=== PATIENT | male | born 1960 | race Two or more races ===

== ENCOUNTER 2024-04-27 12:27 | Emergency (ER) | payer MEDICAID, SELFPAY ==
--- NOTE | ~2024-04-27 | US_ITS ---
EXAMINATION: US TRIPLEX LOWER EXTREMITY, LEFT CLINICAL INFORMATION: Re-eval of DVT COMPARISON: None available. TECHNIQUE: Color-flow triplex imaging with spectral analysis and compression Doppler were performed on the left lower extremity. FINDINGS: Respiratory variation, normal compression and augmented flow are noted throughout the left lower extremity. The visualized common femoral vein, superficial femoral vein, profunda femoral vein, popliteal vein and midcalf peroneal and posterior tibial venous segments show no evidence of deep venous thrombosis. There is no Hernández's cyst. US/US venous duplex LE LT IMPRESSION: No evidence of deep venous thrombosis involving the left lower extremity. Electronically signed by: Hardik Doshi MD 04/27/2024 01:40 PM EDT
--- NOTE | ~2024-04-27 | CT_ITS ---
EXAMINATION: CT HEAD WITHOUT CONTRAST CLINICAL INFORMATION: Dizziness. COMPARISON: None. TECHNIQUE: Contiguous axial imaging was performed from the skullbase to vertex without intravenous administration of contrast. This CT examination was performed using dose optimization techniques as appropriate, variously including the following: *Automated exposure control *Adjustment of mA and/or kV according to patient size (this includes techniques or standardized protocols for targeted exams where dose is matched to indication/reason for exam; i.e. extremities or head) *Use of iterative reconstruction technique DLP: 786 mGy-cm. FINDINGS: There is no evidence of acute intracranial hemorrhage or territorial infarction. No abnormal mass effect or midline shift is seen. Sheth to white matter differentiation is well preserved. No extra-axial fluid collections are identified. The ventricles are normal in size. There is no abnormal attenuation within the brain parenchyma. The osseous structures and soft tissues are normal. There is mild mucosal thickening in the right maxillary antrum. Significant bilateral mastoid effusions noted with aeration of the middle ear cavities. The nasopharyngeal soft tissues appear normal. Fatty changes partially visible in the right parotid gland. CT/CT head/brain wo IV con IMPRESSION: No acute intracranial pathology. Electronically signed by: Mathew Gabriel MD 04/27/2024 02:04 PM EDT
[2024-04-27 12:32] VITALS: BP 169/62; PULSE 76; RESP 18; TEMP 36.8; O2SAT 97; BMI 26.2
--- NOTE | 2024-04-27 12:34 | ED_ITS ---
HPI - General Adult General Chief complaint: General Medical Stated complaint: Multiple Complaints Time Seen by Provider: 04/27/24 19:40 Source: family Limitations: language barrier History of Present Illness ED Provider: Candelaria Duran PA-C HPI narrative: 64 year old assigned male at with history of hypertension, hyperlipidemia, DVT, gout and coronary artery disease presenting to the emergency department with ongoing dizziness and re-eval of blood clot. Patient states he recently traveled to [place] and there was diagnosed with a left lower leg DVT. Patient states that they continued him on his plavix and told him to follow up with a doctor in 7 days to repeat an US of the left lower leg to make sure it isn't getting worse. Patient states he often wakes up dizzy and ?sees spots in his field of vision?. The symptoms last for seconds and resolve. Patient denies headache, visual changes, nausea, vomiting. Patient denies that he is ?seeing a her in close within his field of view?. Patient denies palpitations, chest pain, shortness of breath or near syncopal symptoms. Patient is new to the area, he is yet to establish primary care. Related Data Previous Rx's ?Medication ?Instructions ?Recorded clopidogrel 75 mg tablet 75 mg PO DAILY #30 tabs 04/27/24 colchicine 0.6 mg capsule 0.6 mg PO BID #60 caps 04/27/24 Allergies Allergy/AdvReac Type Severity Reaction Status Date / Time No Known Allergies Allergy Verified 04/27/24 12:36 Review of Systems 2 Review of Systems: Yes all other systems are reviewed and are negative Eyes: Eyes: Denies blind spots, Denies blurry vision, Denies change in vision, Reports floaters, Denies loss of vision and Reports spots in vision Cardiovascular: Cardiovascular: Denies chest pain and Denies dyspnea Respiratory: Respiratory: Denies hemoptysis and Denies dyspnea Neurologic: Denies loss of vision [facility] Past Medical History Attestation statement: The following information was validated with the patient. Social History Social History Advance Directives: No Advance Directives Information Provided: No Do you have a plan to hurt others: No Plan Physical Exam ED Vital Signs: Vital Signs - 24 hr 04/27/24 12:32 04/27/24 19:59 04/27/24 20:53 Temperature 98.3 F 96.6 F L Pulse Rate 76 58 62 Respiratory Rate 18 17 Blood Pressure 169/62 H 141/58 H 148/52 H Pulse Oximetry 97 96 Oxygen Delivery Method Room Air Room Air 04/27/24 21:01 04/27/24 21:01 04/27/24 21:02 Temperature Pulse Rate 65 58 62 Respiratory Rate Blood Pressure 150/59 H 126/59 L 148/52 H Pulse Oximetry Oxygen Delivery Method BMI result Body Mass Index 26.2 Const Other: Awake, well in appearance sitting up in bed eating his meal Orientation/consciousness: patient oriented x3 Eyes Other: Extraocular eye movements intact, pupils are equal and reactive, pterygium noted right eye, no nystagmus Resp Other: Nonlabored respiration Cardio Other: Normal peripheral perfusion, no pedal edema Skin Other: Warm dry no rash Neuro Other: Ambulates with normal steady gait, Romberg negative General: patient oriented x3, no focal motor deficits and CN's II-XI intact bilaterally Psych Other: Calm cooperative Course Course Course Narrative: RME performed by Janet Kang PA-C. Patient is a 64 year old assigned male at presenting to the emergency department with new onset dizziness and re- eval of blood clot. Patient states he recently traveled to [place] and there was diagnosed with a left lower leg DVT. Patient states that they continued him on his plavix and told him to follow up with a doctor in 7 days to repeat an US of the left lower leg to make sure it isn't getting worse. Patient states that also over the last 3 days he has been having increased dizziness / floaters in his vision. Detailed physical exam and review of systems are deferred to the pinmaker. EKG, labs, imaging, and swabs ordered. Patient placed back in the waiting room pending room availability and results. Medical Decision Making Medical Decision Making MDM Narrative: 64 year old assigned male at with history of hypertension, hyperlipidemia, DVT, gout and coronary artery disease presenting to the emergency department with ongoing dizziness and re-eval of blood clot. Patient states he recently traveled to [place] and there was diagnosed with a left lower leg DVT. Patient states that they continued him on his plavix and told him to follow up with a doctor in 7 days to repeat an US of the left lower leg to make sure it isn't getting worse. Patient states he often wakes up dizzy and ?sees spots in his field of vision?. The symptoms last for seconds and resolve. Patient denies headache, visual changes, nausea, vomiting. Patient denies that he is ?seeing a her in close within his field of view?. Patient denies palpitations, chest pain, shortness of breath or near syncopal symptoms. Patient is new to the area, he is yet to establish primary care. Patient has also requesting that some of his medications be filled, he needs his clopidogrel and colchicine. Problem: Vascular disease, gout History: Per patient I have considered the following differential diagnoses: Retinal detachment, age-related floaters, vitreal detachment, uveitis, orthostatic hypotension, CVA, anemia, new arrhythmia, vertigo Plan: The patient is assessment began in [facility]. Screening labs including DVT study and a CT of the brain were obtained. The patient does not have evidence of a DVT, from what he is describing, he has dependent edema, he has no peripheral edema at this time. In regard to the dizziness, I checked his orthostatic vitals, normal variant noted. He only is dizzy when he wakes in the morning, this is very nonspecific. CVA was also considered, however he has no neurologic deficits, the dizziness is transient, , he is not ataxic. In regard to his ocular complaints, I have considered retinal detachment, vitreal detachment. However he is not having vision loss, I performed bedside ocular ultrasound, no abnormalities noted. Thought about uveitis, however he does not have any underlying associated inflammatory or autoimmune diseases, and the eyes are also not painful. I am advising that he follow up with an community service technician for a thorough eye exam. Also consider vertigo, however there was no nystagmus on exam and position change does not elicit symptoms. I have independently reviewed the following tests: Labs: No leukocytosis, not anemic, no electrolyte abnormality, viral panel and negative EKG: Normal sinus rhythm, rate of 63, no ischemic changes no ectopy, QTC 395 CT brain: ECHNIQUE: Contiguous axial imaging was performed from the skullbase to vertex without intravenous administration of contrast. This CT examination was performed using dose optimization techniques as appropriate, variously including the following: *Automated exposure control *Adjustment of mA and/or kV according to patient size (this includes techniques or standardized protocols for targeted exams where dose is matched to indication/reason for exam; i.e. extremities or head) *Use of iterative reconstruction technique DLP: 786 mGy-cm. FINDINGS: There is no evidence of acute intracranial hemorrhage or territorial infarction. No abnormal mass effect or midline shift is seen. Sheth to white matter differentiation is well preserved. No extra-axial fluid collections are identified. The ventricles are normal in size. There is no abnormal attenuation within the brain parenchyma. The osseous structures and soft tissues are normal. There is mild mucosal thickening in the right maxillary antrum. Significant bilateral mastoid effusions noted with aeration of the middle ear cavities. The nasopharyngeal soft tissues appear normal. Fatty changes partially visible in the right parotid gland. CT/CT head/brain wo IV con IMPRESSION: No acute intracranial pathology. Electronically signed by: Mathew Gabriel MD 04/27/2024 02:04 PM EDT RP Doppler study left lower extremity:OMPARISON: None available. TECHNIQUE: Color-flow triplex imaging with spectral analysis and compression Doppler were performed on the left lower extremity. FINDINGS: Respiratory variation, normal compression and augmented flow are noted throughout the left lower extremity. The visualized common femoral vein, superficial femoral vein, profunda femoral vein, popliteal vein and midcalf peroneal and posterior tibial venous segments show no evidence of deep venous thrombosis. There is no Hernández's cyst. US/US venous duplex LE LT IMPRESSION: No evidence of deep venous thrombosis involving the left lower extremity. Electronically signed by: Hardik Doshi MD 04/27/2024 01:40 PM EDT Lab Data 04/27/24 13:23 04/27/24 13:23 Labs: Lab Results 04/27/24 Range/Units 13:23 WBC 9.7 (4.8-10.8) X10*3/uL RBC 4.90 (4.60-5.80) X10*6/uL Hgb 14.7 (14.0-18.0) g/dl Hct 43.1 (42.0-52.0) % MCV 88.0 (80.0-98.0) fL MCH 30.0 (27.0-33.0) pg MCHC 34.1 (31.0-36.0) g/dl RDW 13.6 (11.0-16.0) % Plt Count 340 (160-400) X10*3/uL MPV 9.6 (9.4-12.4) fL Immature Gran % (Auto) 0.4 (0.0-0.4) % Neut % (Auto) 65.4 (45-73) % Lymph % (Auto) 22.5 (20-40) % Greene % (Auto) 8.8 (2-11) % Eos % (Auto) 2.2 (0-4) % Baso % (Auto) 0.7 (0-2) % Lymph # (Auto) 2.2 (1.2-4.9) X10*3/uL Greene # (Auto) 0.9 (0.1-1.2) X10*3/uL Eos # (Auto) 0.2 (0.0-0.4) X10*3/uL Baso # (Auto) 0.1 (0.0-0.2) X10*3/uL Abs Immat Gran (auto) 0.04 H (0.00-0.03) X10*3/uL Absolute Neuts (auto) 6.3 (2.0-8.3) x10*3/uL Absolute Nucleated RBC 0.000 (0.0-0.012) X10*3/uL Nucleated RBC % (auto) 0.0 (0.0-0.2) /100WBC PT 14.7 H (11.1-13.3) SEC INR 1.2 H (0.9-1.1) APTT 30.9 (26.0-36.8) SEC Sodium 139 (135-145) mmol/L Potassium 4.7 (3.3-5.1) mmol/L Chloride 106 (96-108) mmol/L Carbon Dioxide 26 (22-29) mmol/L Anion Gap 12 (12-20) BUN 12 (9-16) mg/dL Creatinine 0.79 (0.5-1.4) mg/dL Estim Creat Clear Calc 93.7 Estimated GFR > 60 Random Glucose 99 (60-115) mg/dL Calcium 9.8 (8.4-10.2) mg/dL Magnesium 2.2 (1.6-2.6) mg/dL Total Bilirubin 0.6 (0.0-1.0) mg/dL AST 18 (5-37) U/L ALT 21 (0-40) U/L Alkaline Phosphatase 105 (39-117) U/L Troponin I High Sens < 2.7 (<3.5-35.0) ng/L Total Protein 7.4 (6.5-8.0) g/dL Albumin 4.3 (3.5-5.0) g/dL Influenza Type A (PCR) NEGATIVE (Negative) Influenza Type B (PCR) NEGATIVE (Negative) RSV RNA Qual (PCR) NEGATIVE (Negative) SARS-CoV-2 RNA (RT-PCR) NEGATIVE (Negative) Discharge Plan Discharge Clinical Impression: Dizziness Patient Disposition: Home, Self-Care Instructions: Dizziness (ED) Additional Instructions: All of your screening labs were normal. There were no concerning changes on your EKG. The CT scan of your brain was negative as well. You were also screened for a clot in the left lower extremity, that study was negative. You need to establish primary care. Take your prescribed medications as previously directed. Prescriptions: New clopidogrel 75 mg tablet 75 mg PO DAILY Qty: 30 0RF colchicine 0.6 mg capsule 0.6 mg PO BID Qty: 60 0RF Print Language: Chadian
--- NOTE | 2024-04-27 12:37 | ECG_ITS ---
Test Reason : cp Blood Pressure : / mmHG Vent. Rate : 063 BPM Atrial Rate : 063 BPM P-R Int : 156 ms QRS Dur : 078 ms QT Int : 386 ms P-R-T Axes : 052 006 050 degrees QTc Int : 395 ms Normal sinus rhythm Possible Left atrial enlargement Borderline ECG No previous ECGs available Referred By: Janet Kang Electronically Signed By:MARKUS BUSBY
[2024-04-27 13:28] LABS: MANUAL DIFF FLAG NO
[2024-04-27 13:34] LABS: Basophils Absolute Auto 0.1 X10*3/uL (0.0-0.2); Basophils Percent Auto 0.7 % (0-2); Eosinophils Absolute Auto 0.2 X10*3/uL (0.0-0.4); Eosinophils Percent Auto 2.2 % (0-4); Hematocrit 43.1 % (42.0-52.0); Hemoglobin 14.7 g/dl (14.0-18.0); Imm Gran Abs Auto 0.04 X10*3/uL (0.00-0.03); Imm Gran Pct Auto 0.4 % (0.0-0.4); Lymphocytes Absolute Auto 2.2 X10*3/uL (1.2-4.9); Lymphocytes Percent Auto 22.5 % (20-40); Mean Corpuscular HGB Conc 34.1 g/dl (31.0-36.0); Mean Platelet Volume 9.6 fL (9.4-12.4); Monocytes Absolute Auto 0.9 X10*3/uL (0.1-1.2); Monocytes Percent Auto 8.8 % (2-11); Neutrophils Absolute Auto 6.3 x10*3/uL (2.0-8.3); Neutrophils Percent Auto 65.4 % (45-73); Platelet Count 340 X10*3/uL (160-400); Red Cell Distribution Width 13.6 % (11.0-16.0); White Blood Count 9.7 X10*3/uL (4.8-10.8)
[2024-04-27 13:42] LABS: INTERNATIONAL NORM RATIO 1.2 (0.9-1.1); Prothrombin Time 14.7 SEC (11.1-13.3)
[2024-04-27 13:44] LABS: Partial Thromboplastin Time 30.9 SEC (26.0-36.8)
[2024-04-27 14:05] LABS: Alanine Aminotransferase 21 U/L (0-40); Albumin Level 4.3 g/dL (3.5-5.0); Alkaline Phosphatase 105 U/L (39-117); Anion Gap 12 (12-20); Aspartate Amino Transferase 18 U/L (5-37); Bilirubin Total 0.6 mg/dL (0.0-1.0); Blood Urea Nitrogen 12 mg/dL (9-16); Calcium 9.8 mg/dL (8.4-10.2); Carbon Dioxide 26 mmol/L (22-29); Chloride 106 mmol/L (96-108); Creatinine Clr Calc Pharmacy 93.7; Estimated Glomerular Filt Rate > 60; Glucose Random 99 mg/dL (60-115); Magnesium 2.2 mg/dL (1.6-2.6); Potassium 4.7 mmol/L (3.3-5.1); Sodium 139 mmol/L (135-145); Total Protein 7.4 g/dL (6.5-8.0)
[2024-04-27 14:14] LABS: Troponin-I High Sensitivity < 2.7 ng/L (<3.5-35.0)
[2024-04-27 14:20] LABS: Influenza A PCR NEGATIVE (Negative); Influenza B PCR NEGATIVE (Negative); Resp Syncy Virus RNA Qual PCR NEGATIVE (Negative); SARS COV2 PCR INHOUSE NEGATIVE (Negative)
--- NOTE | 2024-04-27 19:36 | PC.NURSE ---
Pt brought to 17h from waiting room, assumed care of pt at this time. Results received, awaiting MD primary evlito, aware of plan of care.
[2024-04-27 19:59] VITALS: BP 141/58; PULSE 58; RESP 17; TEMP 35.9; O2SAT 96
[2024-04-27 20:53] VITALS: BP 148/52; PULSE 62
[2024-04-27 21:01] VITALS: BP 126/59; BP 150/59; PULSE 58; PULSE 65
[2024-04-27 21:02] VITALS: BP 148/52; PULSE 62
[2024-04-27 21:43] VITALS: BP 148/52; PULSE 62; RESP 16; TEMP 36.4; O2SAT 98
== END 2024-04-27 21:45 | disposition home or self-care (01) ==
PROVIDERS: Physician Assistant Medical; Emergency Provider Internal Medicine
DX: R42 Dizziness and giddiness (principal); Z03.818 Encounter for observation for suspected exposure to other biological agents ruled out; I10 Essential (primary) hypertension; E78.5 Hyperlipidemia, unspecified; Z86.718 Personal history of other venous thrombosis and embolism; Z79.01 Long term (current) use of anticoagulants
CPT/HCPCS: 0241U; 70450; 80053; 83735; 84484; 85025; 85610; 85730; 93005; 93971; 99283; 99284

== ENCOUNTER 2024-12-30 11:30 | Emergency (ER) | payer SELFPAY ==
--- NOTE | ~2024-12-30 | CT_ITS ---
CLINICAL HISTORY: right flank pain, 10 10, no urinary sx --- Additional Notes or Special Instructions : please look at kidney and spine CT abdomen and pelvis without contrast Comparison: None Findings: No nephrolithiasis or hydronephrosis. No perinephric or periureteral stranding. No bladder stone. Underdistended bladder. Increased submucosal fat. No consolidation at the lung bases. Underdistended gallbladder. The other solid organs are normal. No bowel wall thickening or dilation. A normal appendix is identified. No aneurysm. Moderate calcified atherosclerotic disease. No lymphadenopathy. No ascites. No acute fracture. Multilevel degenerative change is most prominent at L2/L3 and L3/L4 with [id number] central spinal canal stenosis. Foraminal stenosis is most prominent L4/L5 on the right with moderate stenosis. Impression: No urinary tract stone, obstruction or other acute findings. This document has been electronically signed by: Angelina Zhu MD on 12/30/2024 13:10:20
--- NOTE | 2024-12-30 11:35 | ED_ITS ---
HPI - General Adult General Chief complaint: Urogenital-Male Stated complaint: pain r side Time Seen by Provider: 12/30/24 11:39 Source: patient and family (daughter) Mode of arrival: ambulatory Limitations: no limitations History of Present Illness ED Provider: MAXINE BURK PA-C HPI narrative: 64 year old male with pmhx significant for CAD s/p stent placement, HLD, gout, nephrolithiasis presents to the ED today for evaluation of right lower back pain since 0800 this morning. Pain is localized to right low back, no radiation, exacerbated with movement and standing. Reports heavy lifting 2 days ago at work. 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 No blunt injury/trauma. Trialed Beng[place] patch this morning without relief. Admits to hx of renal stones >10 yrs ago. He did not require surgery and was able to pass these on his own. States this discomfort feels different. Denies fever, chills, N/V, urinary sx. Denies hx of spinal surgeries. Denies hx of IVDU. Admits to hx of tobacco use, quit 7 mo ago just recently began smoking cigarettes again. Related Data Previous Rx's ?Medication ?Instructions ?Recorded clopidogrel 75 mg tablet 75 mg PO DAILY #30 tabs 04/27/24 colchicine 0.6 mg capsule 0.6 mg PO BID #60 caps 04/27/24 baclofen 5 mg tablet 5 mg PO TID PRN muscle pain #10 12/30/24 tabs lidocaine 5 % topical patch 1 patch topical DAILY #15 ea 12/30/24 (Lidoderm) Allergies Allergy/AdvReac Type Severity Reaction Status Date / Time No Known Allergies Allergy Verified 12/30/24 11:38 Review of Systems 2 Review of Systems: Yes all other systems are reviewed and are negative PMFSH Past Medical History Attestation statement: The following information was validated with the patient. Source: old records reviewed and nursing notes reviewed Social History Social History Smoked in Last 30 Days: Yes Advance Directives: No Advance Directives Information Provided: No Do you have a plan to hurt others: No Plan Physical Exam ED Vital Signs: Vital Signs - 24 hr 12/30/24 11:37 12/30/24 12:03 12/30/24 14:00 Temperature 98 F 98.2 F 98.8 F Pulse Rate 87 88 75 Respiratory Rate 18 18 16 Blood Pressure 112/85 135/53 L 116/50 L Pulse Oximetry 97 97 94 Oxygen Delivery Method Room Air Room Air Room Air BMI result Body Mass Index 23.4 Vital signs stable, afebrile General: Well appearing, in no acute distress. Skin: Warm, dry, intact. No rashes or lesions. Head: Normocephalic, atraumatic. EENT: Hearing is intact b/l. Conjunctiva clear. PERRLA. EOM intact. Moist mucous membranes.? Neck: Supple without LAD Cardiac: Chest wall symmetric. RRR Lungs: Normal respiratory effort without accessory muscle use. CTA bilaterally Abdomen: Soft, non-tender, non-distended. No rebound tenderness or guarding. Positive BS x4. no cvat. Back: No midline spinous tenderness or step-off deformity. There is tenderness over right lumbar paraspinal musculature with palpable spasm. No fluctuance. No overlying skin changes. Ext: Upper and lower extremities atraumatic, without tenderness, deformity, swelling or erythema Neuro: AOx3. Normal speech. Strength 5/5 intact throughout. No saddle anesthesia. Sensation intact to light touch. NV intact distally. Ambulating with steady gait. Course Course Course Narrative: RME performed by Janet Kang PA-C. Patient is a 64 year old assigned male at presenting to the emergency department with right sided flank / back pain. Patient states starting this morning he began to have right sided flank and back pain. Detailed physical exam and review of systems are deferred to the mental measurements teacher. EKG and labs ordered. Patient placed back in the waiting room pending room availability and results. Reevaluation(s) Reevaluation #1: CBC with mild leukocytosis to 12.2 without left shift. No anemia. H&H stable. Chemistry showing hyperkalemia to 5.3, normal magnesium. Patient does not appear to be in any sort potassium-sparing diuretic. No history of hyperkalemia. Normal kidney function. Normal liver function. Initial troponin 2.9, repeat 5 hours later also WNL. ekg showing NSR without acute ischemic changes. ACS unlikely. urine without infection/blood. negative covid, flu, rsv. CT a/p without evidence of bladder stone, no perinephric or periureteral stranding, no noted nephrolithiasis or hydronephrosis. Normal appendix. No bowel obstruction. No aneurysm. No acute fracture noted to vertebra, there is multilevel degenerative change most prominent at L2/L3 and L3/L4 with mild to moderate central spinal canal stenosis. Foraminal stenosis is most prominent at L4/L5 on the right with moderate stenosis. > patient has been treated with Tylenol, morphine, lido patch and muscle relaxer with improvement. His exam findings are consistent with muscular injury. no carla pain red flags. Will send him home with a prescription for baclofen and lidocaine patches. Both him and his daughter at bedside are agreeable with this. Advised outpatient follow-up. Patient has remained stable throughout ED visit today. Discussed worrisome signs and symptoms and when to return to the ED. All questions answered at this time. Patient is agreeable with disposition and stable for discharge. Medications Administered Discontinued Medications Generic Name Dose Route Start Last Admin Trade Name Freq PRN Reason Stop Dose Admin Acetaminophen 975 mg 12/30/24 12:08 12/30/24 12:24 Acetaminophen 325 Mg Tablet PO 12/30/24 12:09 975 mg ONCE ONE Administration Baclofen 10 mg 12/30/24 14:28 12/30/24 14:39 Baclofen 10 Mg Tablet PO 12/30/24 14:29 10 mg ONCE ONE Administration Sodium Chloride 1,000 mls @ 999 mls/hr 12/30/24 12:30 12/30/24 12:50 Ns IV 12/30/24 13:30 999 mls/hr .Q1H1M ELISHA Administration Lidocaine 1 patch 12/30/24 14:31 12/30/24 14:38 Lidocaine 4 % Patch Adh..Patch TRANSDERMA 12/30/24 14:32 1 patch ONCE ONE Administration Protocol Morphine Sulfate 2 mg 12/30/24 12:28 12/30/24 12:49 Morphine Sulfate 2 Mg/Ml Cartridge IVPUSH 12/30/24 12:29 2 mg ONCE ONE Administration Protocol Sodium Zirconium Cyclosilicate 5 gm 12/30/24 12:25 12/30/24 12:49 Sodium Zirconium Cyclosilicate 5 Gm Powd.Pack PO 12/30/24 12:26 5 gm ONCE ONE Administration Medical Decision Making Medical Decision Making MDM Narrative: 64 year old male with pmhx significant for CAD s/p stent placement, HLD, gout, nephrolithiasis presents to the ED today for evaluation of right lower back pain since 0800 this morning. Vital signs stable. Afebrile. He is nontoxic- appearing and in no acute distress. on exam, there is no midline spinous tenderness or step-off deformity. There is tenderness over right lumbar paraspinal musculature with palpable spasm. No fluctuance. No overlying skin changes. Differential diagnosis includes MSK sprain/strain, fracture, muscle spasm, nephrolithiasis, renal colic, hydronephrosis, UTI. Unlikely cauda equina, Guillain-[place], epidural abscess, cord compression. Plan for labs, UA, CT, pain control, re-evaluation. Differential Diagnosis Differential Diagnoses: The differential diagnosis associated with the presentation includes as above. Admission/Observation Not indicated Lab Data MDM Lab Attestation statement: I reviewed the patient's lab results. As above 12/30/24 11:55 12/30/24 11:55 Labs: Lab Results 12/30/24 12/30/24 Range/Units 11:55 14:46 WBC 12.2 H (4.8-10.8) X10*3/uL RBC 4.82 (4.60-5.80) X10*6/uL Hgb 15.1 (14.0-18.0) g/dl Hct 43.0 (42.0-52.0) % MCV 89.2 (80.0-98.0) fL MCH 31.3 (27.0-33.0) pg MCHC 35.1 (31.0-36.0) g/dl RDW 13.5 (11.0-16.0) % Plt Count 304 (160-400) X10*3/uL MPV 9.2 L (9.4-12.4) fL Immature Gran % (Auto) 0.3 (0.0-0.4) % Neut % (Auto) 72.3 (45-73) % Lymph % (Auto) 12.5 L (20-40) % Stokes % (Auto) 10.1 (2-11) % Eos % (Auto) 4.2 H (0-4) % Baso % (Auto) 0.6 (0-2) % Lymph # (Auto) 1.5 (1.2-4.9) X10*3/uL Stokes # (Auto) 1.2 (0.1-1.2) X10*3/uL Eos # (Auto) 0.5 H (0.0-0.4) X10*3/uL Baso # (Auto) 0.1 (0.0-0.2) X10*3/uL Abs Immat Gran (auto) 0.04 H (0.00-0.03) X10*3/uL Absolute Neuts (auto) 8.8 H (2.0-8.3) x10*3/uL Absolute Nucleated RBC 0.000 (0.0-0.012) X10*3/uL Nucleated RBC % (auto) 0.0 (0.0-0.2) /100WBC Sodium 139 (135-145) mmol/L Potassium 5.3 H (3.3-5.1) mmol/L Chloride 106 (96-108) mmol/L Carbon Dioxide 25 (22-29) mmol/L Anion Gap 13 (12-20) BUN 14 (9-16) mg/dL Creatinine 0.69 (0.5-1.4) mg/dL Estim Creat Clear Calc 118.2 Estimated GFR > 60 Random Glucose 111 (60-115) mg/dL Calcium 9.5 (8.4-10.2) mg/dL Magnesium 1.9 (1.6-2.6) mg/dL Total Bilirubin 0.7 (0.0-1.0) mg/dL AST 24 (5-37) U/L ALT 23 (0-40) U/L Alkaline Phosphatase 96 (39-117) U/L Troponin I High Sens 2.9 3.5 (<3.5-35.0) ng/L Total Protein 7.4 (6.5-8.0) g/dL Albumin 4.2 (3.5-5.0) g/dL Urine Color Yellow Urine Appearance Clear Urine pH 5.5 (5.0-9.0) Ur Specific [place] 1.020 (1.005-1.025) Urine Protein Negative (Neg-Trace) mg/dL Urine Glucose (UA) Negative (Negative) mg/dL Urine Ketones Negative (Negative) mg/dL Urine Blood Negative (Negative) Urine Nitrite Negative (Negative) Ur Leukocyte Esterase Negative (Negative) Influenza Type A (PCR) NEGATIVE (Negative) Influenza Type B (PCR) NEGATIVE (Negative) RSV RNA Qual (PCR) NEGATIVE (Negative) SARS-CoV-2 RNA (RT-PCR) NEGATIVE (Negative) Independent Interpretation I performed an independent interpretation of an: EKG and CT Scan Interpretation: EKG showing NSR, rate 76 bpm, no acute ischemic changes CT a/p without perinephric stranding or hydronephrosis, no obvious ureteral stones Radiology Impression Discussion of test interpretation with radiology: I have reviewed the radiologist's reading. Radiologist Impression: Procedure(s): CT abdomen pelvis wo IV con Accession Number(s): [id number] cc: Physician,Unknown ; Maxine Burk~ Report Number: [id number]: Total DLP = 0.00 mGy-cm CLINICAL HISTORY: right flank pain, 10 10, no urinary sx --- Additional Notes or Special Instructions: please look at kidney and spine CT abdomen and pelvis without contrast Comparison: None Findings: No nephrolithiasis or hydronephrosis. No perinephric or periureteral stranding. No bladder stone. Underdistended bladder. Increased submucosal fat. No consolidation at the lung bases. Underdistended gallbladder. The other solid organs are normal. No bowel wall thickening or dilation. A normal appendix is identified. No aneurysm. Moderate calcified atherosclerotic disease. No lymphadenopathy. No ascites. No acute fracture. Multilevel degenerative change is most prominent at L2/L3 and L3/L4 with [id number] central spinal canal stenosis. Foraminal stenosis is most prominent L4/L5 on the right with moderate stenosis. Impression: No urinary tract stone, obstruction or other acute findings. Independent Historian Clinical information obtained from an independent historian. History obtained from or confirmed by: Other (daughter) External Record Review External record reviewed: Inpatient record Prescription Management I considered prescription management with: Pain Medication and Other (balofen, lido patch) Social Determinants Patient?s care significantly limited by Social Determinants of Health including: Other Social Determinant of Health Critical Care Time Critical Care Time Critical Care Time: Yes Total Critical Care Time: 32 Attestation: Critical care time in the amount of 32 minutes has been provided to the patient in terms of direct patient care, frequent reevaluation on IV morphine, review and interpretation of medical data and results, and management of potentially life-threatening conditions. This is all outside of any medical procedures. Discharge Plan Discharge Clinical Impression: Lumbar back pain Patient Disposition: Home, Self-Care Instructions: Acute Low Back Pain (ED) Additional Instructions: You were evaluated in the Emergency Department today for your back pain.? Your evaluation did not show signs of medical conditions requiring emergent intervention at this time. Your potassium levels were elevated to 5.3. normal range is (3.3-5.1). You were given medication in ED to help lower this. Please follow up with your PCP to have levels rechecked in 2 weeks to make sure they stay normal. In regards to your abck pain, avoid bending, lifting, or twisting. Use ice several times per day for 20 minutes at a time for the next 48 hours and then change to heat. I recommend you take 600mg ibuprofen every 6 hours or tylenol 650mg every 6 hours as needed for pain. If needed, you can alternate these medications so that you take one medication every 3 hours. For example, at noon take ibuprofen, then at 3pm take tylenol, then at 6pm take ibuprofen. Baclofen is a muscle relaxer. Take this at night as it makes you drowsy. Do not drive, drink alcohol, or operate machinery while taking it. Lidoderm patches are numbing patches. Apply to painful areas. Please schedule an appointment for follow-up with your primary care provider this week for further evaluation of your symptoms. Return to the Emergency Department if you experience worsening back pain, difficulty walking, fevers, numbness, tingling, incontinence, or any other concerning symptoms. In the case of an emergency call 911. Prescriptions: New lidocaine [Lidoderm] 5 % adhesive patch,medicated 1 patch topical DAILY Qty: 15 0RF Rx Instructions: leave on most painful area for up to 12 hrs baclofen 5 mg tablet 5 mg PO TID PRN (Reason: muscle pain) Qty: 10 0RF No Action clopidogrel 75 mg tablet 75 mg PO DAILY Qty: 30 0RF colchicine 0.6 mg capsule 0.6 mg PO BID Qty: 60 0RF Referrals: Physician,Unknown J [Primary Care Provider] - Stand Alone Forms: Work/School Release Print Language: Welsh
[2024-12-30 11:37] VITALS: BP 112/85; PULSE 87; RESP 18; TEMP 36.6; O2SAT 97; BMI 23.4
--- NOTE | 2024-12-30 11:37 | ECG_ITS ---
Test Reason : flank pain Blood Pressure : */* mmHG Vent. Rate : 76 BPM Atrial Rate : 76 BPM P-R Int : 148 ms QRS Dur : 74 ms QT Int : 366 ms P-R-T Axes : 61 14 68 degrees QTcB Int : 411 ms Normal sinus rhythm Possible Left atrial enlargement Nonspecific T wave abnormality Abnormal ECG When compared with ECG of 27-Apr-2024 12:51, Nonspecific T wave abnormality, worse in Lateral leads Referred By: Janet Kang Electronically Signed By: JON OCHOA MD
[2024-12-30 12:01] LABS: MANUAL DIFF FLAG NO
[2024-12-30 12:02] LABS: Basophils Absolute Auto 0.1 X10*3/uL (0.0-0.2); Basophils Percent Auto 0.6 % (0-2); Eosinophils Absolute Auto 0.5 X10*3/uL (0.0-0.4); Eosinophils Percent Auto 4.2 % (0-4); Hemoglobin 15.1 g/dl (14.0-18.0); Imm Gran Abs Auto 0.04 X10*3/uL (0.00-0.03); Imm Gran Pct Auto 0.3 % (0.0-0.4); Lymphocytes Absolute Auto 1.5 X10*3/uL (1.2-4.9); Lymphocytes Percent Auto 12.5 % (20-40); Mean Corpuscular HGB Conc 35.1 g/dl (31.0-36.0); Mean Corpuscular Hemoglobin 31.3 pg (27.0-33.0); Mean Corpuscular Volume 89.2 fL (80.0-98.0); Mean Platelet Volume 9.2 fL (9.4-12.4); Monocytes Absolute Auto 1.2 X10*3/uL (0.1-1.2); Monocytes Percent Auto 10.1 % (2-11); Neutrophils Absolute Auto 8.8 x10*3/uL (2.0-8.3); Neutrophils Percent Auto 72.3 % (45-73); Platelet Count 304 X10*3/uL (160-400); Red Blood Count 4.82 X10*6/uL (4.60-5.80); Red Cell Distribution Width 13.5 % (11.0-16.0); White Blood Count 12.2 X10*3/uL (4.8-10.8)
[2024-12-30 12:03] VITALS: BP 135/53; PULSE 88; RESP 18; TEMP 36.8; O2SAT 97
[2024-12-30 12:03] LABS: Appearance Urine Clear; Color Urine Yellow; Glucose Urine UA Negative (Negative); Leukocyte Esterase Urine Negative (Negative); Nitrite Urine Negative (Negative); PH 5.5 (5.0-9.0); Urine Blood Negative (Negative); Urine Ketones Negative (Negative); Urine Protein Negative (Neg-Trace)
[2024-12-30 12:17] LABS: Alanine Aminotransferase 23 U/L (0-40); Albumin Level 4.2 g/dL (3.5-5.0); Alkaline Phosphatase 96 U/L (39-117); Anion Gap 13 (12-20); Aspartate Amino Transferase 24 U/L (5-37); Bilirubin Total 0.7 mg/dL (0.0-1.0); Blood Urea Nitrogen 14 mg/dL (9-16); Calcium 9.5 mg/dL (8.4-10.2); Carbon Dioxide 25 mmol/L (22-29); Chloride 106 mmol/L (96-108); Creatinine Clr Calc Pharmacy 118.2; Estimated Glomerular Filt Rate > 60; Glucose Random 111 mg/dL (60-115); Magnesium 1.9 mg/dL (1.6-2.6); Potassium 5.3 mmol/L (3.3-5.1); Sodium 139 mmol/L (135-145); Total Protein 7.4 g/dL (6.5-8.0)
[2024-12-30 12:21] LABS: Troponin-I High Sensitivity 2.9 ng/L (<3.5-35.0)
[2024-12-30] MEDS: Acetaminophen 325 MG TABLET 975 MG PO (12:24)
[2024-12-30 12:40] LABS: Influenza A PCR NEGATIVE (Negative); Influenza B PCR NEGATIVE (Negative); Resp Syncy Virus RNA Qual PCR NEGATIVE (Negative); SARS COV2 PCR INHOUSE NEGATIVE (Negative)
[2024-12-30] MEDS: Morphine Sulfate 2 MG/ML CARTRIDGE IVPUSH (12:49)
[2024-12-30] MEDS: Sodium Zirconium Cyclosilicate 5 GM POWD.PACK PO (12:49)
[2024-12-30] MEDS: 0.9 % Sodium Chloride 1,000 ML 999 ML IV (12:50)
--- NOTE | 2024-12-30 13:58 | PC.NURSE ---
64 year old male with pmhx significant for CAD s/p stent placement, HLD, gout, nephrolithiasis presents to the ED today for evaluation of right flank pain since 0800 this morning. Pain is localized to right flank, no radiation, exacerbated with movement and standing. Patient alert and oriented. Lungs clear bilat. Respirations even and non-labored. c/o right flank pain. Patient is a daily drinker. No LE edema noted.
[2024-12-30 14:00] VITALS: BP 116/50; PULSE 75; RESP 16; TEMP 37.1; O2SAT 94
[2024-12-30] MEDS: Lidocaine 4 % Patch ADH..PATCH 1 PATCH TRANSDERMA (14:38)
[2024-12-30] MEDS: Baclofen 10 MG TABLET PO (14:39)
[2024-12-30 15:15] LABS: Troponin-I High Sensitivity 3.5 ng/L (<3.5-35.0)
[2024-12-30 15:27] VITALS: BP 118/70; PULSE 75; RESP 16; TEMP 37.1; O2SAT 94
== END 2024-12-30 15:31 | disposition home or self-care (01) ==
PROVIDERS: Physician Assistant Medical; Emergency Provider Emergency Medicine Emergency Medical Services
DX: M54.50 Low back pain, unspecified (principal); I25.10 Atherosclerotic heart disease of native coronary artery without angina pectoris; R94.31 Abnormal electrocardiogram [ECG] [EKG]; R10.2 Pelvic and perineal pain; F17.210 Nicotine dependence, cigarettes, uncomplicated; Z79.899 Other long term (current) drug therapy; Z03.818 Encounter for observation for suspected exposure to other biological agents ruled out
CPT/HCPCS: 0241U; 36415; 74176; 80053; 81003; 83735; 84484; 85025; 93005; 96361; 96374; 99284; 99285; J2270

== ENCOUNTER → 2024-12-30 11:37 | Outpatient (BNV) | payer SELFPAY | PROVIDERS: Emergency Provider Emergency Medicine Emergency Medical Services; Visit Provider Internal Medicine Cardiovascular Disease | DX: R07.9 Chest pain, unspecified (principal); R94.31 Abnormal electrocardiogram [ECG] [EKG] | CPT/HCPCS: 93010 ==

== ENCOUNTER → 2024-12-30 12:26 | Outpatient (BNV) | payer SELFPAY | PROVIDERS: Emergency Provider Emergency Medicine Emergency Medical Services; Visit Provider Radiology Diagnostic Radiology | DX: R10.9 Unspecified abdominal pain (principal) | CPT/HCPCS: 74176 ==